=== PATIENT | female | born 1930 | race Caucasian/White ===

== ENCOUNTER 2017-06-30 12:25 | Inpatient (IN) | payer MEDICARE ==
[2017-06-30 13:41] LABS: #Lymphocytes 0.9 thou/uL (1.20-3.40); #Monocytes 1.4 thou/uL (0.11-0.59); #Neutrophils 11.3 thou/uL (1.40-6.50); %Basophils 0.1 % (0.0-1.0); %Eosinophils 0.1 % (0.0-10.0); %Lymphocytes 6.5 % (21.0-51.0); %Monocytes 10.1 % (0.0-10.0); Hematocrit 38.6 % (36.0-47.0); Mean Platelet Volume 9.2 fL (7.4-10.4); Red Blood Cell (RBC) Count 4.17 mill/uL (4.20-5.40); White Blood Cell (WBC) Count 13.6 thou/uL (4.8-10.8)
[2017-06-30 14:04] LABS: ALT (SGPT) 15 U/L (8-55); AST (SGOT) 16 U/L (5-34); Alkaline Phosphatase 81 U/L (40-150); Anion Gap 14 mmol/L (10-20); BUN (Urea Nitrogen) 26 mg/dL (9.8-20.1); Bilirubin, Total 1.4 mg/dL (0.2-1.2); Calc. Creatinine Clearance 0 mL/min (70-130); Calcium 10.2 mg/dL (7.8-10.44); Carbon Dioxide 25 mmol/L (23-31); Chloride 101 mmol/L (98-107); Estimated GFR-MDRD 57; Globulin 3.4 g/dL (2.4-3.5); Protein, Total 6.7 g/dL (6.0-8.3)
[2017-06-30] MEDS ORDERED: Ondansetron HCl/PF 4 MG/2 ML Vial ONE ×2 (14:10→15:40)
[2017-06-30] MEDS ORDERED: Piperacillin/Tazobactam 4.5 GM in Sodium Chloride 0.9% 100 ML IVPB SCH (14:15)
[2017-06-30] MEDS ORDERED: SODIUM CHLORIDE 0.9% IVPB SCH (14:30)
[2017-06-30] MEDS ORDERED: GENTAMICIN SULFATE IVPB SCH (14:30)
[2017-06-30 14:36] LABS: Bilirubin Small (Negative); Blood, Urine Moderate (Negative); Glucose, Urine (Dipstick) Negative (Negative); Ketone, Urine Negative (Negative); Nitrite Negative (Negative); Protein, Urine (Dipstick) 30 mg/dL (Neg-Trace)
[2017-06-30 14:38] LABS: Bacteria/HPF None Seen HPF (None Seen); Squamous Epithelial 0-3 HPF (0-3)
[2017-06-30 14:50] LABS: Hyaline Casts/LPF 0-3 HYALINE CAST LPF (0-3 Hyaline); Renal Epithelial None Seen HPF (0-3); Transitional Epithelial NONE SEEN HPF (0-3); Yeast-All Forms None Seen HPF (None Seen)
[2017-06-30] MEDS ORDERED: PHENYLEPHRINE-NS 100 MCG/ML 10 ML SYRINGE ONE (15:40)
[2017-06-30] MEDS ORDERED: Propofol 200 MG/20 ML VIAL ONE (15:40)
[2017-06-30] MEDS ORDERED: Dexamethasone 20 MG/5 ML VIAL ONE (15:40)
[2017-06-30] MEDS ORDERED: Esmolol 100 MG/10 ML VIAL ONE (15:40)
[2017-06-30] MEDS ORDERED: Lidocaine 1% PF 5 ML VIAL ONE (15:40)
[2017-06-30] MEDS ORDERED: Fentanyl 250 MCG/5 ML VIAL ONE (15:45)
[2017-06-30 15:50] LABS: PTT 40.6 SEC (22.9-36.1); Prothrombin Time 18.3 SEC (12.0-14.7)
[2017-06-30] MEDS ORDERED: Iothalamate Meglumine 60% 50 ML VIAL FS ONE (16:04)
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
--- NOTE | 2017-06-30 18:16 | RAD ---
FOUR IMAGES FROM AN IVP: Indication: Ureteral calculus. Fluoroscopic time: 57 seconds and accumulated dose of 2.24 mGy*cm^2. FINDINGS: First submitted image demonstrates a large stone within the region of the left UPJ. Subsequent images demonstrate removal of stone and placement of a left ureteral stent. Proximal aspect of the left ure teral stent is present and projects in the expected position. IMPRESSION: Removal of left UPJ stone and interval placement of left ureteral stent. POS: [facility]
[2017-06-30] MEDS ORDERED: Promethazine HCl 25 MG/ML VIAL IM PRN (18:25)
[2017-06-30] MEDS ORDERED: Promethazine HCl 25 MG/ML VIAL SLOW IVP PRN (18:25)
[2017-06-30] MEDS ORDERED: Ondansetron HCl/PF 4 MG/2 ML Vial IVP PRN (18:25)
[2017-06-30] MEDS ORDERED: Fentanyl 100 MCG/2 ML VIAL ONE (18:28)
[2017-06-30] MEDS: Sodium Chloride 0.9% 1,000 ML IV SCH (20:00)
[2017-06-30] MEDS ORDERED: Sodium Chloride 0.9% 1,000 ML IV SCH (20:01)
[2017-06-30] MEDS ORDERED: Morphine PF 1 MG/ML SYR IVP PRN (20:02)
[2017-06-30] MEDS ORDERED: Promethazine HCl 25 MG/ML VIAL IM/IV PRN (20:02)
[2017-06-30] MEDS ORDERED: Bisacodyl 5 MG TAB PO PRN (20:02)
[2017-06-30 20:13] VITALS: BMI 28.5
[2017-06-30] MEDS ORDERED: Dronedarone HCl 400 MG TAB PO SCH (20:30)
--- NOTE | 2017-06-30 20:50 | OP ---
DATE OF SERVICE: 06/30/2017 PREOPERATIVE DIAGNOSIS: Left proximal ureteral stone with colic and probable early sepsis. POSTOPERATIVE DIAGNOSIS: Left proximal ureteral stone with colic and probable early sepsis. PROCEDURE PERFORMED: Cystoscopy, left retrograde, left stent. SURGEON: Dr. Hill Spangler ANESTHETIC: TIVA. ESTIMATED BLOOD LOSS: Minimal, not recorded. FINDINGS: There was no evidence of bladder abnormality except for a cystocele. She had a 9 mm proxi mal left ureteral stone that was easily passed with a guidewire. She has had concentrated bloody uri ne proximal to it. She had a 6 x 24 Polaris double-J stent placed, no string attached, no Patten cath eter left. OPERATIVE TECHNIQUE: Obtained written and verbal consent from the patient. After receiving IV antib iotics, she was taken to the operating suite. She was placed in the supine position on the treatment table. PlexiPulses were placed on her lower extremities and turned on. She was given TIVA anesthet ic with an oral obturator and then placed in the dorsal lithotomy position and sterilely prepped and draped. C-arm was brought in for imaging. The stone was easily seen on this imaging. Cystoscopy wa s performed with a 22-Faroese sheath. This was well lubricated and passed under direct vision through the female urethra into the urinary bladder with aid of 30-degree lens and video camera and monitor. Bladder was filled and emptied a number of times and examined and 4 x 4s placed into the vagina to elevate the cystocele in order to find the left ureteral orifice. Once this was identified, a guidew jase was fed up in this and easily passed the stone as documented fluoroscopically. A 5 Faroese Pollac k catheter was placed over this and the wire was removed. We then drained out about 10 mL of a frankie ntrated bloody urine and then injected about 3 mL of contrast just to fill out the collecting system in this region and then placed the guidewire back through the open-ended catheter and put a stent acr oss the guidewire pushing up into place with aid of a pusher, so its proximal end coiled in the renal pelvis and its distal end coiled in the bladder. At this point, the patient was taken out of dorsal lithotomy position, awakened, extubated, and taken by stretcher to the recovery room.
[2017-06-30] MEDS: Piperacillin/Tazobactam 2.25 GM in Sodium Chloride 0.9% 100 ML IVPB SCH (21:55)
[2017-06-30] MEDS: Metoprolol Tartrate 25 MG TAB PO SCH (21:55)
[2017-06-30] MEDS: Pravastatin Sodium 20 MG TAB PO SCH (21:55)
[2017-06-30] MEDS: Zolpidem Tartrate 5 MG TAB PO PRN (22:23)
[2017-06-30] MEDS ORDERED: Morphine 10 MG/ML CARPUJECT SLOW IVP PRN (23:45)
[2017-07-01] MEDS: Piperacillin/Tazobactam 2.25 GM in Sodium Chloride 0.9% 100 ML IVPB SCH ×4 (03:35→21:07)
[2017-07-01 04:56] LABS: #Lymphocytes 0.8 thou/uL (1.20-3.40); #Monocytes 0.4 thou/uL (0.11-0.59); #Neutrophils 9.1 thou/uL (1.40-6.50); %Eosinophils 0.2 % (0.0-10.0); %Lymphocytes 7.6 % (21.0-51.0); %Monocytes 3.8 % (0.0-10.0); Hematocrit 35.3 % (36.0-47.0); Mean Platelet Volume 9.6 fL (7.4-10.4); Red Blood Cell (RBC) Count 3.79 mill/uL (4.20-5.40); White Blood Cell (WBC) Count 10.3 thou/uL (4.8-10.8)
[2017-07-01 05:08] LABS: Anion Gap 12 mmol/L (10-20); BUN (Urea Nitrogen) 26 mg/dL (9.8-20.1); Calc. Creatinine Clearance 55 mL/min (70-130); Calcium 9.6 mg/dL (7.8-10.44); Carbon Dioxide 21 mmol/L (23-31); Chloride 108 mmol/L (98-107); Estimated GFR-MDRD 58
[2017-07-01] MEDS: Dronedarone HCl 400 MG TAB PO SCH ×2 (08:10→16:38)
[2017-07-01] MEDS: Metoprolol Tartrate 25 MG TAB PO SCH ×2 (08:10→21:07)
[2017-07-01] MEDS: Sodium Chloride 0.9% 1,000 ML IV SCH ×2 (08:31→21:06)
--- NOTE | 2017-07-01 19:15 | PDOC.PN ---
- Subjective Encounter Start Date: 07/01/17 Encounter Start Time: 15:00 Patient seen and examined. No new complaints. No overnight events. Some hematuria - Objective Resuscitation Status: Resuscitation Status FULL:Full Resuscitation MAR Reviewed: Yes Vital Signs & Weight: Vital Signs (12 hours) Temp Pulse Resp BP Pulse Ox 07/01/17 15:03 98.3 F 82 20 154/66 H 92 L 07/01/17 11:09 98.4 F 71 20 122/55 L 93 L 07/01/17 08:00 98.5 F 79 20 94 L Weight Admit Weight 179 lb 3.76 oz Weight 179 lb 3.773 oz I&O: 06/30/17 07/01/17 07/02/17 06:59 06:59 06:59 Intake Total 826 1590 Output Total 100 800 Balance 726 790 Result Diagrams: 07/01/17 04:37 07/01/17 04:37 EKG Reviewed by me: Yes (Tele SR) Phys Exam - Physical Examination Constitutional: NAD Respiratory: no wheezing, no rales, no rhonchi, clear to auscultation bilateral Cardiovascular: RRR, no rub no heaves/pulsations Gastrointestinal: soft, no distention, positive bowel sounds mild gen tend, no guarding Musculoskeletal: no edema Neurological: non-focal, normal sensation, moves all 4 limbs Psychiatric: normal affect, A&O x 3 Dx/Plan - Plan out of bed/ambulate, DVT proph w/SCDs IMPRESSION: 1. Sepsis due to complicated UTI/Ureteral calculus - s/p cysto with stent placement 2. Chronic Afib - Eliquis on hold 3. CAD - on ASA 4. HTN 5. CKD 3 PLAN: * Eliquis on hold - resume when ok with Urology * Cont to monitor * AM labs * Cont current meds as below * Cont Zosyn * Await cultures * Consult Walking program Review of Systems - Review of Systems Respiratory: negative: Cough, Dry, Shortness of Breath, Hemoptysis, SOB with Excertion, Pleuritic Pain, Sputum, Wheezing Cardiovascular: negative: Chest Pain, Palpitations, Orthopnea, Paroxysmal Noc. Dyspnea, Edema, Light Headedness - Medications/Allergies Allergies/Adverse Reactions: Allergies Allergy/AdvReac Type Severity Reaction Status Date / Time azithromycin Allergy Mild Verified 01/29/17 21:46 levofloxacin Allergy Mild Verified 01/29/17 21:46 Medications: Current Medications Aspirin (Aspirin Chewable) 81 mg PO DAILY [facility] Last Admin: 07/01/17 08:10 Dose: 81 mg Bisacodyl (Dulcolax) 10 mg PO DAILYPRN PRN PRN Reason: Constipation Dronedarone (Multaq) 400 mg PO BID-[facility] Last Admin: 07/01/17 16:38 Dose: 400 mg Sodium Chloride (Normal Saline 0.9%) 1,000 mls @ 75 mls/hr IV .[id number] [facility] Last Admin: 07/01/17 08:31 Dose: 1,000 mls Piperacillin Sod/Tazobactam (Sod 2.25 gm/ Sodium Chloride) 100 mls @ 200 mls/ hr IVPB 0300,0900,1500,2100 [facility] Last Admin: 07/01/17 16:38 Dose: 100 mls Isosorbide Mononitrate (Imdur) 60 mg PO DAILY [facility] Last Admin: 07/01/17 08:10 Dose: 60 mg Metoprolol Tartrate (Lopressor) 25 mg PO BID [facility] Last Admin: 07/01/17 08:10 Dose: 25 mg Morphine Sulfate (Morphine) 2 mg SLOW IVP Q4H PRN PRN Reason: Pain Last Admin: 07/01/17 00:07 Dose: 2 mg Pantoprazole Sodium (Protonix) 40 mg PO DAILY [facility] Last Admin: 07/01/17 08:11 Dose: 40 mg Pravastatin Sodium (Pravachol) 20 mg PO HS [facility] Last Admin: 06/30/17 21:55 Dose: 20 mg Promethazine HCl (Phenergan) 6.25 mg IM/IV Q6H PRN PRN Reason: Nausea/Vomiting Sodium Chloride (Flush - Normal Saline) 10 ml IVF Q12HR [facility] Last Admin: 07/01/17 08:12 Dose: 10 ml Sodium Chloride (Flush - Normal Saline) 10 ml IVF PRN PRN PRN Reason: Saline Flush Zolpidem Tartrate (Ambien) 5 mg PO HSPRN PRN PRN Reason: Insomnia Last Admin: 06/30/17 22:23 Dose: 5 mg
[2017-07-01] MEDS: Pravastatin Sodium 20 MG TAB PO SCH (21:07)
[2017-07-01] MEDS: Zolpidem Tartrate 5 MG TAB PO PRN (23:14)
[2017-07-02] MEDS: Piperacillin/Tazobactam 2.25 GM in Sodium Chloride 0.9% 100 ML IVPB SCH ×2 (02:56→08:43)
[2017-07-02 05:26] LABS: #Lymphocytes 1.2 thou/uL (1.20-3.40); #Monocytes 0.9 thou/uL (0.11-0.59); #Neutrophils 9.7 thou/uL (1.40-6.50); %Basophils 0.1 % (0.0-1.0); %Eosinophils 0.1 % (0.0-10.0); %Lymphocytes 10.4 % (21.0-51.0); %Monocytes 7.3 % (0.0-10.0); Hematocrit 31.7 % (36.0-47.0); Mean Platelet Volume 9.3 fL (7.4-10.4); Red Blood Cell (RBC) Count 3.41 mill/uL (4.20-5.40); White Blood Cell (WBC) Count 11.8 thou/uL (4.8-10.8)
[2017-07-02 05:52] LABS: Anion Gap 10 mmol/L (10-20); BUN (Urea Nitrogen) 31 mg/dL (9.8-20.1); Calc. Creatinine Clearance 62 mL/min (70-130); Calcium 9.4 mg/dL (7.8-10.44); Carbon Dioxide 23 mmol/L (23-31); Chloride 111 mmol/L (98-107); Estimated GFR-MDRD 67; Magnesium 1.5 mg/dL (1.6-2.6)
[2017-07-02] MEDS ORDERED: Labetalol HCl 100 MG/20 ML VIAL SLOW IVP PRN (06:45)
[2017-07-02] MEDS ORDERED: Magnesium 2 GM/NS 0.9% 50 ML 2 GM in Premix Bag 1 BAG IVPB SCH (07:30)
[2017-07-02] MEDS ORDERED: Magnesium Sulfate 2 GM in Sodium Chloride 0.9% 100 ML IVPB SCH (07:30)
[2017-07-02] MEDS: Dronedarone HCl 400 MG TAB PO SCH (08:43)
[2017-07-02] MEDS: Metoprolol Tartrate 25 MG TAB PO SCH (08:43)
[2017-07-02 11:27] VITALS: BP 180/78; TEMP 97.8
[2017-07-02] MEDS: Sodium Chloride 0.9% 1,000 ML IV SCH (12:31)
--- NOTE | 2017-07-03 10:24 | DIS ---
DATE OF ADMISISON: 06/30/2017 DATE OF DISCHARGE: 07/02/2017 DISCHARGE DISPOSITION: Home. FOLLOWUP: 1. Follow up with primary care physician, Dr. Gao in 1 week. 2. Follow up with Dr. Hill Spangler as scheduled. ALLERGIES: The patient is allergic to AZITHROMYCIN and LEVAQUIN. DISCHARGE MEDICATIONS: Eliquis 5 mg b.i.d., Zyrtec 10 mg daily, vitamin D3 5000 units b.i.d., Multaq 400 mg b.i.d., Pepcid 20 mg daily, gabapentin 100 mg b.i.d., Imdur 60 mg daily, meclizine 25 mg elle y, Lopressor 25 mg b.i.d., Singulair 10 mg daily, multivitamin 1 tablet daily, pravastatin 40 mg at b edtime, sublingual nitroglycerin as needed, [place] Thyroid 60 mg daily, valsartan/HCTZ 160/12.5 b.i.d ., Ambien 2.5 mg at bedtime. INPATIENT CONSULTANTS: Urology, Dr. Spangler. BRIEF HOSPITAL COURSE: Patient is an 86-year-old female with hypertension, coronary artery disease, chronic atrial fibrillation on anticoagulation who presented to the hospital with flank pain. Please refer to the history and physical dated 06/30/[address] Bazzi for further details. The patient was admitted to the hospital with the diagnosis of left-sided ureteral calculus causing o bstruction/urinary tract infection. She underwent cystoscopy with stent placement by Dr. Spangler. e has been cleared by Dr. Spangler for discharge. She will follow up with Urology next week for shock wave lithotripsy. She also had some electrolyte imbalance that has been corrected. She was advised to discontinue aspirin for now. Eliquis will be resumed today per Urology. She will discontinue Jennifer joanne prior to shockwave lithotripsy. FINAL DIAGNOSES: 1. Sepsis secondary to complicated urinary tract infection. Patient will continue Macrobid and Kefl ex that was prescribed recently per Urology. 2. Ureteral calculus causing obstruction, status post cystoscopy with stent placement. 3. Hypomagnesemia, corrected. 4. Chronic atrial fibrillation on anticoagulation. 5. Coronary artery disease. Patient will hold aspirin per Urology. Primary care physician is advis ed to follow. 6. Hypertension. 7. Chronic kidney disease stage 3. 8. Slightly abnormal LFTs. Repeat labs as outpatient is recommended. Primary care physician is vivek ised to follow. Plan of care was discussed with the patient in detail. She stated understanding. Total time coordinating the discharge of this patient was 32 minutes.
--- NOTE | 2017-07-06 13:37 | EKG ---
Test Reason : Blood Pressure : / mmHG Vent. Rate : 135 BPM Atrial Rate : 136 BPM P-R Int : 128 ms QRS Dur : 100 ms QT Int : 318 ms P-R-T Axes : 000 -59 109 degrees QTc Int : 477 ms Sinus tachycardia Left anterior fascicular block Septal infarct , age undetermined Abnormal ECG Confirmed by VINICIO BLAND, CHANO Dozier ([id number]), editor in chief EFRAIN العراقي ([id number]) on 07/06/2017 1:36:29 PM Referred By: Confirmed By:CHANO MOONEY MD
== END 2017-07-02 14:42 | disposition home or self-care (01) | DRG 872 ==
LOC: ERS 12:25 → SDC/OP 18:26 → IMCU/EMU 19:52
PROVIDERS: ADMIT Hospitalist; ATTEND Hospitalist
PROC: 0T778DZ Dilation of Left Ureter with Intraluminal Device, Via Natural or Artificial Opening Endoscopic (ICD-10-PCS; principal; 2017-06-30)
PROC: BT1FZZZ Fluoroscopy of Left Kidney, Ureter and Bladder (ICD-10-PCS; 2017-06-30)
DX: A41.9 Sepsis, unspecified organism (principal); I48.2 Chronic atrial fibrillation; N18.3 Chronic kidney disease, stage 3 (moderate); E83.42 Hypomagnesemia; N13.6 Pyonephrosis; I25.10 Atherosclerotic heart disease of native coronary artery without angina pectoris; N81.10 Cystocele, unspecified; N13.9 Obstructive and reflux uropathy, unspecified; I12.9 Hypertensive chronic kidney disease with stage 1 through stage 4 chronic kidney disease, or unspecified chronic kidney disease; R94.5 Abnormal results of liver function studies; Z79.01 Long term (current) use of anticoagulants
CPT/HCPCS: 36415; 74420; 76000; 80048; 80053; 81003; 81015; 83605; 83735; 85025; 85610; 85730; 87040; 87070; 87086; 87205; 93005; 96365; 96367; 96375; C1758; J1100; J1580; J2001; J2405; J2543; J2704; J3010; J3370; J3475; J7050; Q9961

== ENCOUNTER 2017-07-10 05:37 | Day surgery (SDC) | payer MEDICARE ==
[2017-07-09 13:25] VITALS: BMI 28.0
[2017-07-10] MEDS ORDERED: Fentanyl 100 MCG/2 ML VIAL ONE (06:31)
[2017-07-10] MEDS ORDERED: Iothalamate Meglumine 60% 50 ML VIAL FS ONE (06:57)
[2017-07-10 07:04] LABS: Anion Gap 15 mmol/L (10-20); BUN (Urea Nitrogen) 18 mg/dL (9.8-20.1); Calc. Creatinine Clearance 47 mL/min (70-130); Calcium 10.6 mg/dL (7.8-10.44); Carbon Dioxide 22 mmol/L (23-31); Chloride 106 mmol/L (98-107); Estimated GFR-MDRD 50
[2017-07-10 07:08] LABS: #Eosinphils 0.2 thou/uL (0.0-0.7); #Lymphocytes 2.2 thou/uL (1.20-3.40); #Monocytes 0.9 thou/uL (0.11-0.59); #Neutrophils 5.2 thou/uL (1.40-6.50); %Basophils 0.5 % (0.0-1.0); %Eosinophils 1.9 % (0.0-10.0); %Lymphocytes 25.9 % (21.0-51.0); %Monocytes 10.4 % (0.0-10.0); Mean Platelet Volume 8.4 fL (7.4-10.4); Red Blood Cell (RBC) Count 3.77 mill/uL (4.20-5.40); White Blood Cell (WBC) Count 8.5 thou/uL (4.8-10.8)
[2017-07-10 07:28] LABS: EPI Status Message No Message
[2017-07-10] MEDS ORDERED: cefTRIAXone\\ROCEPHIN 1 GM, Syringe 0.4 ML in Sterile Water 9.6 ML SLOW IVP SCH (07:30)
--- NOTE | 2017-07-10 07:49 | RAD ---
KUB: Date: 07/10/17 INDICATION: Preoperative examination. COMPARISON: IVP dated 06/30/17. FINDINGS: The left ureteral stent is unchanged in position from the comparison IVP. The left ureteral stone measuring 9.2 mm seen on the comparison IVP examination has moved distally to the level of the left sacral ala. There is an additional 8.0 mm stone within the inferior pole of th e left kidney that was obscured by contrast within the renal collecting system of the prior exam. An additional stone is likely present within the superior renal pole of the left kidney within a calyx m easuring approximately 1.2 cm. The gallbladder is surgically absent. There is a small suspected phlebolith within the lower left hemipelvis. There are scattered vascular calcifications within the pelvis. Bowel gas pattern is unobstructed. No acute osseous abnormality is evident. IMPRESSION: 1. Stable left ureteral stent. 2. Left ureteral calculus. 3. Left nephrolithiasis. 4. Cholecystectomy. POS: [facility]
[2017-07-10 09:34] LABS: EPI Status Message No Message
== END 2017-07-10 10:00 | disposition home or self-care (01) ==
LOC: SDC 05:37
PROVIDERS: ATTEND Urology
DX: N20.1 Calculus of ureter (principal); Z53.8 Procedure and treatment not carried out for other reasons; Z88.1 Allergy status to other antibiotic agents; Z90.710 Acquired absence of both cervix and uterus; Z90.49 Acquired absence of other specified parts of digestive tract
CPT/HCPCS: 36415; 74000; 80048; 85025; 85576; A4216; J0696; J3010; Q9961

== ENCOUNTER 2017-07-17 06:04 | Day surgery (SDC) | payer MEDICARE ==
[2017-07-17] MEDS ORDERED: CEFAZOLIN/Water 2 GM/20 ML SYRINGE ONE (06:35)
[2017-07-17] MEDS ORDERED: Fentanyl 100 MCG/2 ML VIAL ONE (06:49)
[2017-07-17] MEDS ORDERED: Iothalamate Meglumine 60% 50 ML VIAL FS ONE (07:09)
--- NOTE | 2017-07-17 08:14 | RAD ---
KUB: Indication: Pre-operative evaluation. IMPRESSION: Examination is unchanged from the comparison dated 07-10-17 at 7:15 a.m. COMMENTS: The left ureteral stent is unchanged in position. 9 mm left ureteral calculus is unchanged in position. Left nephrolithiasis is similar. Scattered vascular calcifications are present. Cholecy stectomy clips are seen within the right upper quadrant. Chronic osseous degenerative changes are pre sent. POS: [facility]
--- NOTE | 2017-07-17 11:48 | OP ---
DATE OF PROCEDURE: 07/17/2017 PREOPERATIVE DIAGNOSES: 1. Left renal stone. 2. Left stent. POSTOPERATIVE DIAGNOSES: 1. Left renal stone. 2. Left stent. PROCEDURE PERFORMED: Left ESWL, cystoscopy, removal left stent. SURGEON: Dr. Hill Spangler ANESTHETIC: General. ESTIMATED BLOOD LOSS: Not recorded. FINDINGS: There is a 9 mm stone that was treated with 2500 shocks at maximum kV level of 4. It frag mented very, very well and for that reason the stent was discontinued. OPERATIVE TECHNIQUE: After obtaining written and verbal consent from the patient after receiving tiki e IV Ancef, she was taken to the operating suite. She was placed in the supine position on the treat ment table. PlexiPulses were placed on her lower extremities and turned on. She was given a general anesthetic, oral obturator intubation. She was coupled to the lithotripter unit. The stone which h ad been in the proximal ureter was now up in the renal pelvis, was placed in treatment focal point. Shockwave therapy was commenced at a low kV after a couple 100 shocks, a 5 minute pause was given the kV was then increased to 4. The stone started breaking up immediately, some of it dropped back in t he upper pole lashell and after treating all that remained in the renal pelvic we moved and treated the se fragments that had fallen up in this region. After a total of 2500 shocks there were no sizable f ragments remaining. She was placed in the dorsal lithotomy position and sterilely prepped and draped . Cystoscopy was performed with a 22-[place] sheath. This was well lubricated and passed under direc t vision through the female urethra into the urinary bladder with aid of a 30 degree lens video camer a and monitor. The bladder was filled and emptied a number of times. The distal end of the stent wa s grasped and brought out intact. It uncurled and came out easily. Imaging of the left upper quadra nt showed no sizable stone fragments remaining. She, at this point was awakened, extubated, and take n by stretcher to the recovery room.
[2017-07-17] MEDS ORDERED: Propofol 200 MG/20 ML VIAL ONE (15:10)
[2017-07-17] MEDS ORDERED: Esmolol 100 MG/10 ML VIAL ONE (15:10)
[2017-07-17] MEDS ORDERED: Ondansetron HCl/PF 4 MG/2 ML Vial ONE (15:10)
[2017-07-17] MEDS ORDERED: PHENYLEPHRINE-NS 100 MCG/ML 10 ML SYRINGE ONE (15:10)
== END 2017-07-17 11:45 | disposition home or self-care (01) ==
LOC: SDC 06:04
PROVIDERS: ATTEND Urology
PROC: 0TF4XZZ Fragmentation in Left Kidney Pelvis, External Approach (ICD-10-PCS; principal; 2017-07-17)
PROC: 0TP98DZ Removal of Intraluminal Device from Ureter, Via Natural or Artificial Opening Endoscopic (ICD-10-PCS; 2017-07-17)
DX: N20.0 Calculus of kidney (principal); I48.91 Unspecified atrial fibrillation; I10 Essential (primary) hypertension; I25.10 Atherosclerotic heart disease of native coronary artery without angina pectoris; Z87.442 Personal history of urinary calculi; Z79.82 Long term (current) use of aspirin; Z79.01 Long term (current) use of anticoagulants; Z79.899 Other long term (current) drug therapy; Z88.1 Allergy status to other antibiotic agents; Z90.49 Acquired absence of other specified parts of digestive tract; Z90.710 Acquired absence of both cervix and uterus; Z98.890 Other specified postprocedural states
CPT/HCPCS: 74000; J2405; J2704; J3010; Q9961

== ENCOUNTER 2018-05-27 09:00 | Outpatient (CLI) | payer MEDICARE ==
--- NOTE | 2018-05-27 16:27 | NM ---
RADIONUCLIDE GASTRIC EMPTYING SCAN: Date: 05/27/18 HISTORY: Nausea and vomiting. FINDINGS: There is 51% emptying of the ingested gastric contents at 1 hour, 73% emptying at 2 hours, 96% emptyi ng at 3 hours, and 100% emptying at 4 hours. The calculated gastric halftime measures 72 minutes. IMPRESSION: Normal exam. POS: [facility]
== END 2018-05-27 09:01 | disposition home or self-care (01) ==
LOC: NM 09:00
PROVIDERS: ATTEND Internal Medicine
DX: R11.2 Nausea with vomiting, unspecified (principal)
CPT/HCPCS: 78264; A9541